=== PATIENT | male | born 1975 | race Caucasian/White ===

== ENCOUNTER 2016-10-26 14:26 | Emergency (ER) | payer MEDICAID ==
[~2016-10-26] VITALS: Ht 177.8 cm; Wt 102.1 kg
[2016-10-26 14:26] VITALS: BP 146/83
--- NOTE | 2016-10-26 14:30 | NUR ---
PATIENT TO ED DT LOWER BACK PAIN RADIATES TO L LEG, 11/20, ACHING X 5 DAYS, HX OF SCIATICA. PATIENT IS AMBULATORY, HOWEVER UNSTEADY. VSS
== END 2016-10-26 15:44 | disposition left against medical advice (07) ==
LOC: ER 14:27
DX: M54.5 Low back pain (principal); Z91.010 Allergy to peanuts; Z53.20 Procedure and treatment not carried out because of patient's decision for unspecified reasons
CPT/HCPCS: 99283; A4606; Z7610